=== PATIENT | male | born 1950 | race Caucasian/White ===

== ENCOUNTER 2023-01-09 11:04 | Observation (INO) | payer OTHER ==
[~2023-01-09] VITALS: Ht 182.9 cm; Wt 104.0 kg
[2023-01-09 12:24] LABS: BASO # 0.1 K/mm3 (0.0-0.2); BASO % 0.7 % (0.0-2.0); EOS # 0.4 K/mm3 (0.0-0.7); EOS % 4.3 % (0.0-4.0); GRAN # 6.5 K/mm3 (1.4-6.5); GRAN % 65.4 % (42.2-75.2); HEMATOCRIT 39.3 % (42.0-52.0); HEMOGLOBIN 12.7 g/dl (13.5-18.0); LYMPH # 2.2 K/mm3 (1.2-3.4); LYMPH % 22.4 % (20.0-51.0); MEAN CELL VOLUME 87 fl (80.0-100.0); MEAN CORPUSCULAR HEMOGLOBIN 28 pg (27-31); MEAN CORPUSCULAR HGB CONC 32 g/dl (33.0-37.0); MEAN PLATELET VOLUME 9.8 fl (7.4-10.4); MONO # 0.6 K/mm3 (0.1-0.6); PLATELET COUNT 413 K/mm3 (130-400); REDCELL DISTRIBUTION WIDTH-CV 13.3 % (11.5-14.5)
[2023-01-09 12:34] LABS: INR 1.4 (0.8-3.0); PROTHROMBIN TIME 15.1 SECONDS (9.7-12.8)
[2023-01-09 12:36] LABS: PARTIAL THROMBOPLASTIN TIME 33.6 SECONDS (26.0-37.0)
[2023-01-09 12:41] LABS: ALBUMIN 2.8 gm/dL (3.4-4.8); BILIRUBIN,TOTAL 0.8 mg/dL (0.2-1.2); CALCIUM 8.7 mg/dL (8.4-10.2); CREATININE, serum 0.78 mg/dL (0.72-1.25); POTASSIUM 3.9 mmol/L (3.5-4.5); TOTAL PROTEIN 6.6 gm/dL (6.2-8.1)
[2023-01-09] MEDS ORDERED: COREG 6.256.25 MG/TA PO (12:51)
[2023-01-09 12:52] LABS: TROPONIN-I 0.09 ng/mL (0.00-0.033)
[2023-01-09] MEDS ORDERED: PLAVIX 75MG TAB75 MG PO (12:52)
[2023-01-09] MEDS ORDERED: ASPIRIN E.C. 8181 MG PO (12:53)
[2023-01-09] MEDS ORDERED: GLUCOPHAGE1000 MG PO (12:54)
[2023-01-09] MEDS ORDERED: COZAAR 50MG50 MG/TAB PO (12:55)
[2023-01-09] MEDS ORDERED: LASIX 40MG TABL40 MG PO (12:55)
[2023-01-09] MEDS ORDERED: ELIQUIS 5MG PO (12:56)
[2023-01-09] MEDS ORDERED: LIPITOR 80MG80 MG PO (12:57)
[2023-01-09] MEDS ORDERED: PROSCAR 5MG5 MG PO (12:57)
[2023-01-09] MEDS ORDERED: FLOMAX 0.40.4 MG/CAP PO (12:58)
[2023-01-09] MEDS ORDERED: IMODIUM 2MG CAPS2 MG PO (13:03)
[2023-01-09 15:41] VITALS: BP 135/75; PULSE 72; TEMP 98.3
[2023-01-09 19:09] VITALS: BP 120/7; PULSE 72; TEMP 99
--- NOTE | 2023-01-09 19:19 | NUR ---
Patient admitted to unit around 1530. 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 Right side has no movement from CVA as well. Edema noted bilaterally to lower extremities. Patient denies any sort of pain upon admission. 2L O2 on via nc. Sister and niece at bedside. Niece is DPOA, number listed in admission intake. Heparin currently running at 18.5ml/hr, bolus administered prior per orders. Redness noted to coccyx with a small open area that appears to be peeling. Mepilex dressing applied. Patient handoff complete to night supervisor at this time.
[2023-01-09 21:10] VITALS: BP_SYST 120
--- NOTE | 2023-01-09 21:20 | NUR ---
Patient assessed around 2109. Camed back from CT head. Denies having pain and discomfort. Heparin drip running per orders, IV site to left hand. Denies SOB and dyspnea. LS CTA. On oxygen at 2 L/min via NC. HRR. Voices no questions, needs, or concerns at this time. In bed with call light within reach. High fall risk precautions in place. Bed alarm on.
[2023-01-09 23:13] VITALS: BP 123/76; PULSE 69; TEMP 97.5
[2023-01-10] VITALS (9 sets, daily range): BP systolic 107–131; BP diastolic 59–75; PULSE 66–77; TEMP 97.8–98.3
--- NOTE | 2023-01-10 00:16 | NUR ---
HepXa was 1.25. Put on Heparin drip on hold at 2330. This nurse reviewed chart, and HepxA was 0.5 around 1600, but Heparin drip was not started until 1700. Patient had received one dose of Eliquis. Call placed to pharmacist, and asked if we should switch to monitoring by PTT, and agreed we should. Added on PTT, with a result of 101.8, goal for Heparin drip. Restarted Heparin drip at 1850 units/hr at this time, and order placed to recheck PTT at 0615.
--- NOTE | 2023-01-10 05:44 | NUR ---
Continues on Heparin drip per orders. Has denied having pain and discomfort. Continues on oxygen at 2 L/min via NC. Denies SOB and dyspnea. Voices no questions, needs, or concerns at this time. In bed with call light within reach. High fall risk precautions in place. Bed alarm on.
[2023-01-10 06:45] LABS: HEMATOCRIT 37.4 % (42.0-52.0); HEMOGLOBIN 12.5 g/dl (13.5-18.0); MEAN CELL VOLUME 86 fl (80.0-100.0); MEAN CORPUSCULAR HEMOGLOBIN 29 pg (27-31); MEAN CORPUSCULAR HGB CONC 33 g/dl (33.0-37.0); MEAN PLATELET VOLUME 9.6 fl (7.4-10.4); PLATELET COUNT 422 K/mm3 (130-400); RED BLOOD COUNT 4.37 M/mm3 (4.20-5.60); REDCELL DISTRIBUTION WIDTH-CV 13.2 % (11.5-14.5)
[2023-01-10 07:01] LABS: ALBUMIN 2.8 gm/dL (3.4-4.8); CALCIUM 8.8 mg/dL (8.4-10.2); CREATININE, serum 0.74 mg/dL (0.72-1.25); MAGNESIUM 1.8 mg/dL (1.6-2.6); PHOSPHOROUS 3.8 mg/dL (2.3-4.7); POTASSIUM 3.5 mmol/L (3.5-4.5)
--- NOTE | 2023-01-10 10:07 | NUR ---
Initial visit; Patient thanked Mat Tester for offering prayer and God's blessings for healing.
--- NOTE | 2023-01-10 10:29 | NUR ---
Patient alert and oriented x4 this morning. Shift assessment complete, no new variances noted. Baseline right sided paralysis. Patient tolerating cares well, rolls well without help onto his right side. Denies any generalized or localized pain to areas such as calves or chest. Tolerating soft/bite sized diet and thickened liquids well. Patient had bowel movement, staff assisted in chetan care. New mepilex dressing placed over reddenned coccyx. Medication crushed and administered in pudding. Heparin infusing per orders. Patient currently in bed with call light in reach, all needs met at this time.
[2023-01-10 11:18] LABS: INR 1.4 (0.8-3.0); PROTHROMBIN TIME 14.8 SECONDS (9.7-12.8)
--- NOTE | 2023-01-10 12:41 | NUR ---
Patient remains stable. Niece at bedside. Attempted to start a second IV site to run 1/2 NS separate, unsuccessful attempt x2. 1/2 NS running through Y-site of Heparin per orders. Consent obtained for EDITH tomorrow morning. Patient currently in bed with call light in reach, all needs met at this time.
--- NOTE | 2023-01-10 12:45 | NUR ---
Director Of Religious Activities met with Patient and ras/DAYO Marley at bedside to conduct Care Managment Assessment and discuss discharge planning. Patient admitted from [facility] and intends to discharge to [facility]. Ayaka reports that coordination with [facility] was intitiated for an admit date of today. Patient is established with PCP Dr. Bryant and is covered by [facility] at this time with a [facility] application having been submitted by family prior to admission. Patient is reported to have been on 2L O2 at [facility]. Family's plan is to send Patient for Rehab with an evaluation of PAtient's independency in rehab to discharge home or transition to LTC with the preference of discharging home after rehab. Family requests Speech be consulted during admission. SW requested physician consult speech. Discharge Plan: [facility]
--- NOTE | 2023-01-10 13:30 | NUR ---
rn cardiovascular icu submitted a jail authorization request to [facility] for Patient. Ref # [id number].
--- NOTE | 2023-01-10 15:54 | NUR ---
Dispatcher Radio contated [facility] to follow-up on Patient's referral. Lumber Puller, Allie P:[phone] states that Dennis's Family has changed Patient MCR from C to a standard AB plan and it may impact Patient's acceptence. NATHALIA attempted to contact Patient's DPOAHC Ayaka to inquire about the change in MCR and left voicemail requesting callback. NATHALIA contacted Donald with [facility] to request information if Patient intends to return to [facility] for SNF. Donald reports that they can review clinicals and states that Patient will need to pay the fees from his last stay estimating $1200. NATHALIA contacted [facility] to follow-up on Patient's SNF authorization request. Rep states that it is awaiting decision. NATHALIA inquired about changing the facility in the current request if [facility] is denied authorization. Rep recommends waiting until this authorization is approved/denied before submitting another authorization as it will be needed for another facility.
--- NOTE | 2023-01-10 19:23 | NUR ---
Patient remains stable. Cheeks noted to be flushed earlier, but patient was having bowel movement. Patient reports low appetite, encouraged to eat and drink ensure supplement with thickener if not hungry. Denies pain or discomfort. Patient handoff report complete at this time to hot mill operator.
--- NOTE | 2023-01-10 21:17 | NUR ---
Patient assessed around 1999. Incontinent of stool at that time. Cleaned and repositioned in bed. Has Mepilex to bottom in place. Peripheral INT to left hand, with Heparin drip running per orders. PTT to be rechecked in the morning. Plannig for EDITH tomorrow, and will be NPO after midnight. Patient is aware. In bed with call light within reach. High fall risk precautions in place. Bed alarm on.
--- NOTE | 2023-01-10 22:11 | NUR ---
Patient had 6 beat run Vtach on telemetry. Asymptomatic, VSS. Reviewed labs from this morning, potassium 3.5, mag 1.8, not replaced as not on protocol. Called DERRICK Lee. New order to recheck labs. Order placed and lab called. Lab in room at this time.
[2023-01-10 23:25] LABS: CALCIUM 8.4 mg/dL (8.4-10.2); CREATININE, serum 0.59 mg/dL (0.72-1.25); POTASSIUM 3.6 mmol/L (3.5-4.5)
[2023-01-11] VITALS (17 sets, daily range): BP systolic 105–130; BP diastolic 58–71; PULSE 65–90; TEMP 95.8–98
--- NOTE | 2023-01-11 05:36 | NUR ---
Patient has denied having pain and discomfort this shift. Has been NPO since midnight for EDITH today. Continues on Heparin drip per orders, awaiting morning PTT results at this time. Patient has preop IV fluid ordered, in room, but not running at this time due to low EF. Did have IV fluids running when this nurse came onto shift at 1845, but they were stopped due to this at that time. Patient in bed with call light within reach. High fall risk precautions in place. Bed alarm on.
--- NOTE | 2023-01-11 05:39 | NUR ---
Patient's magnesium and potassium were replaced per orders this shift.
[2023-01-11 06:00] LABS: HEMATOCRIT 37.2 % (42.0-52.0); HEMOGLOBIN 12.5 g/dl (13.5-18.0); MEAN CELL VOLUME 85 fl (80.0-100.0); MEAN CORPUSCULAR HEMOGLOBIN 29 pg (27-31); MEAN CORPUSCULAR HGB CONC 34 g/dl (33.0-37.0); MEAN PLATELET VOLUME 9.6 fl (7.4-10.4); PLATELET COUNT 436 K/mm3 (130-400); RED BLOOD COUNT 4.39 M/mm3 (4.20-5.60)
[2023-01-11 06:33] LABS: ALBUMIN 2.8 gm/dL (3.4-4.8); CALCIUM 8.5 mg/dL (8.4-10.2); CREATININE, serum 0.63 mg/dL (0.72-1.25); PHOSPHOROUS 2.9 mg/dL (2.3-4.7); POTASSIUM 4.1 mmol/L (3.5-4.5)
--- NOTE | 2023-01-11 08:25 | NUR ---
PATIENT RESTING IN BED UPON ENTERING ROOM. ORAL MORNING MEDICATIONS HELD DUE TO NPO STATUS FOR PROCEDURE. SHIFT ASSESSMENT COMPLETED. PATIENT DENIES ANY PAIN OR NEEDS, R SIDE FLACCID, PATIENT ABLE TO ROLL SIDE TO SIDE IN BED WITH ASSISTANCE. BED BATH PROVIDED BY STUDENT RNs. UPDATED PATIENT ON PLAN OF CARE. CALL LIGHT WITHIN REACH, BED ALARMS IN PLACE. HEPARIN GTT INFUSING PER eMAR. WILL CONTINUE TO MONITOR.
--- NOTE | 2023-01-11 09:15 | NUR ---
Patient alert and oriented upon morning assessment. Patient denies any pain or discomfort. Slurred speech and right sided paralysis noted. Dyspnea with speech. Incontinent of urine upon morning assessment, linens changed and bed bath provided. Patient monitored on telemetry. Family at bedside.
--- NOTE | 2023-01-11 11:24 | NUR ---
Vc++ Developer contacted PARUL Araiza with [facility] to discuss Patient's referral. Teodora states that any change in insurance while admitted for SNF will impact the patment process from insruance and [facility] would decline if changes are made through Patient's expected course of treatment. NATHALIA discussed [facility] with Teodora briefing that per [facility], [facility] is contracted with [facility] for SNF services. Teodora states that they will accept if preauthorization is granted from [facility] through [facility]. SW contacted Patient's MONSERRAT Marley to discuss discharge planning. NATHALIA briefed the concern for changes in insurance from [employer] and briefed that [facility] is reported to be contracted with [facility]. Ayaka states that she will make no changes to Patient's insurance. NATHALIA contacted Allie with [facility] to report Ayaka's intent to maintain current insurance. NATHALIA discussed asecondary option of discharging to LTC if SNF is denied by insurance. Allie agrees to speak with her DON to see if this is a seondary option to SNF. NATHALIA contacted Donald with [facility] to inquire about the possibility for Patient's return as a discharge option. Donald states that if family pays the $1200 and authorization is granted by [facility], it is likely that they can accept. Per DAYO Marley, Patient is established with [facility] and [facility] has agreed to pay the remaining balance to AV. MONSERRAT Marley is agreeable to discharging Patient to [facility] if SNF is denied.
--- NOTE | 2023-01-11 14:54 | NUR ---
Geospatial Technician resent Pt notes to [facility] per their request. NATHALIA contacted Ciera with [facility] to follow-up on discharge planning. ciera reports that she has contacted [facility] reviewer who is still pending decision. Geospatial Technician discussed facility acceptencee for SNF and LTC with rehab benefit and inquired if [facility] could admit LTC with Rehab today or over the weekend as they have agreed to accept for both SNF (pending auth) and LTC with rehab. Ciera states that at this time the soonest they can admit Patient is Saturday, - with SNF or LTC with Rehab and will coordinate for transport Saturday AM. NATHALIA informed MONSERRAT Marley.
--- NOTE | 2023-01-11 15:25 | NUR ---
HEPARIN GTT AND IVF DISCONTINUED AT THIS TIME PER ORDERS. PATIENT POST OP VSS.
[2023-01-12] VITALS (11 sets, daily range): BP systolic 100–131; BP diastolic 53–69; PULSE 63–73; TEMP 97.2–98.2
--- NOTE | 2023-01-12 02:04 | NUR ---
Shift assessment completed. Pt is alert and oriented. He is post CVA earlier this month with a flaccid right side and moderate expressive aphasia. He denies pain or discomfort at this time. PM meds were administered with honey-thickened water.He was repositioned until comfortable and is being turned q2h. He denies other needs at this time. Fall precautions in place and call light within reach.
[2023-01-12 06:38] LABS: HEMOGLOBIN 12.3 g/dl (13.5-18.0); MEAN CELL VOLUME 85 fl (80.0-100.0); MEAN CORPUSCULAR HEMOGLOBIN 29 pg (27-31); MEAN CORPUSCULAR HGB CONC 34 g/dl (33.0-37.0); MEAN PLATELET VOLUME 9.5 fl (7.4-10.4); PLATELET COUNT 389 K/mm3 (130-400); RED BLOOD COUNT 4.32 M/mm3 (4.20-5.60); REDCELL DISTRIBUTION WIDTH-CV 13.1 % (11.5-14.5)
[2023-01-12 06:41] LABS: HEMATOCRIT 36.5 % (42.0-52.0)
[2023-01-12 07:39] LABS: ALBUMIN 2.8 gm/dL (3.4-4.8); CALCIUM 8.3 mg/dL (8.4-10.2); CREATININE, serum 0.65 mg/dL (0.72-1.25); PHOSPHOROUS 3.4 mg/dL (2.3-4.7)
--- NOTE | 2023-01-12 08:35 | NUR ---
Patient is awake in bed, oriented x 4, VSS. Denies any pain or disco mfort. Getting 3L O2 NC. Tele in place, NSR. Assessment completed, meds provided. No further needs at this time. Call light within reach.
--- NOTE | 2023-01-12 18:11 | NUR ---
Patient has been resting in bed and watching TV. He had 2 soft BM, hygiene provided. No need for insulin, he has been 100-120 blood glucose. Telemetry NSR. Continues with 2-3L O2. Report will be given to night RN.
--- NOTE | 2023-01-12 23:47 | NUR ---
Shift assessment performed. Pt is alert and oriented in bed. VS wnl. He continues on 3 L O2 via NC. He was cleaned up in the bed with the bathing wipes and repositioned until comfortable. He denies pain or discomfort at this time. No other needs verbalized. Fall precautions in place and call light within reach.
[2023-01-13] VITALS (12 sets, daily range): BP systolic 91–124; BP diastolic 56–71; PULSE 58–71; TEMP 97.2–98.6
[2023-01-13 06:44] LABS: BASO # 0.1 K/mm3 (0.0-0.2); BASO % 0.8 % (0.0-2.0); EOS # 0.3 K/mm3 (0.0-0.7); EOS % 3.5 % (0.0-4.0); GRAN # 4.9 K/mm3 (1.4-6.5); GRAN % 53.7 % (42.2-75.2); HEMATOCRIT 35.9 % (42.0-52.0); HEMOGLOBIN 12.1 g/dl (13.5-18.0); LYMPH # 3.1 K/mm3 (1.2-3.4); LYMPH % 34.2 % (20.0-51.0); MEAN CELL VOLUME 85 fl (80.0-100.0); MEAN CORPUSCULAR HEMOGLOBIN 29 pg (27-31); MEAN CORPUSCULAR HGB CONC 34 g/dl (33.0-37.0); MEAN PLATELET VOLUME 9.6 fl (7.4-10.4); MONO # 0.6 K/mm3 (0.1-0.6); MONO % 6.7 % (1.7-9.3); PLATELET COUNT 389 K/mm3 (130-400); RED BLOOD COUNT 4.23 M/mm3 (4.20-5.60); REDCELL DISTRIBUTION WIDTH-CV 13.2 % (11.5-14.5)
[2023-01-13 06:46] LABS: CALCIUM 8.6 mg/dL (8.4-10.2); CREATININE, serum 0.64 mg/dL (0.72-1.25); POTASSIUM 3.7 mmol/L (3.5-4.5)
--- NOTE | 2023-01-13 08:00 | NUR ---
Patient is resting in bed, breakfast at the bedside, alert and oriented, took his morning meds, assisted with his table to eat. Assessment completed, no further needs at this time. Call light within reach.
--- NOTE | 2023-01-13 21:12 | NUR ---
Patient assessed around 1929. Denies having pain and discomfort. Peripheral INT to left hand. Denies SOB and dyspnea. On oxygen at 2 L/min via NC. Continues on Eliquis per orders. Aware of plan to discharge to nursing facility tomorrow. Voices no questions, needs, or concerns at this time. In bed with call light within reach. High fall risk precautions in place. Bed alarm on.
[2023-01-14 02:59] VITALS: BP 132/68; PULSE 74; TEMP 98
[2023-01-14 03:57] VITALS: BP_SYST 132
--- NOTE | 2023-01-14 06:04 | NUR ---
Patient has denied having pain and discomfort this shift. Voices no questions, needs, or concerns at this time. In bed with call light within reach. High fall risk precautions in place. Bed alarm on.
[2023-01-14 07:22] LABS: BASO # 0.1 K/mm3 (0.0-0.2); CALCIUM 8.6 mg/dL (8.4-10.2); CREATININE, serum 0.66 mg/dL (0.72-1.25); EOS # 0.3 K/mm3 (0.0-0.7); EOS % 3.1 % (0.0-4.0); GRAN % 54.5 % (42.2-75.2); HEMOGLOBIN 12.1 g/dl (13.5-18.0); LYMPH % 32.7 % (20.0-51.0); MEAN CELL VOLUME 85 fl (80.0-100.0); MEAN CORPUSCULAR HEMOGLOBIN 28 pg (27-31); MEAN CORPUSCULAR HGB CONC 33 g/dl (33.0-37.0); MEAN PLATELET VOLUME 9.7 fl (7.4-10.4); MONO # 0.7 K/mm3 (0.1-0.6); MONO % 7.3 % (1.7-9.3); PLATELET COUNT 394 K/mm3 (130-400); POTASSIUM 3.8 mmol/L (3.5-4.5); RED BLOOD COUNT 4.27 M/mm3 (4.20-5.60); REDCELL DISTRIBUTION WIDTH-CV 13.2 % (11.5-14.5)
[2023-01-14 07:23] LABS: HEMATOCRIT 36.4 % (42.0-52.0)
[2023-01-14 07:32] VITALS: BP 114/70; PULSE 80; TEMP 98.2
[2023-01-14 08:30] VITALS: BP_SYST 114
[2023-01-14] MEDS ORDERED: ELIQUIS 5MG PO (08:31)
--- NOTE | 2023-01-14 08:39 | NUR ---
Financial Compliance Examiner collaborated with Treatment Team during rounding to assess Patient for discharge readiness. Physician assesses Patient to be ready for discharge. Financial Compliance Examiner contacted [facility] to follow-up on SNF authorization request. Rep states that additional information is needed to justify Patient's SNF need. SW contacted [facility] to discuss Patient's acceptence. Patient Services AssistantAllie states that they can accept Patient LTC with [facility] for rehab today and states that they will contact this SW back with transportation time. NATHALIA infomred Treatment Team and nursing staff. NATHALIA contacted PAtient's DPOAHC Ayaka to brief discharge details. Nimo acknowledges.
--- NOTE | 2023-01-14 09:00 | NUR ---
PATIENT RESTING IN BED UPON ENTERING ROOM. MORNING MEDICATIONS ADMINISTERED. SHIFT ASSESSMENT COMPLETED. PATIENT DENIES ANY PAIN OR NEEDS. CALL LIGHT WITHIN [facility], WILL CONTINUE TO MONITOR.
--- NOTE | 2023-01-14 11:28 | NUR ---
Help Desk Rep met with Patient at bedside to conduct Medicare IM Brief. Patient acknowledges brief and signs form. Original placed in chart, Patient declined copy. [facility] contacted NATHALIA to inform that Transportation is scheduled at 1300 today. SW informed nursing staff.
[2023-01-14 11:42] VITALS: BP 124/68; PULSE 71; TEMP 98
[2023-01-14 12:30] VITALS: BP_SYST 124
--- NOTE | 2023-01-14 13:35 | NUR ---
PATIENT DISCHARGED FROM MEDICAL UNIT AT THIS TIME. DISCHARGE PACKET SENT WITH CARDING DOUBLER. REPORT CALLED TO KASH WHIPPLE AT [facility], ALL QUESTIONS ANSWERED. TELEMETRY DISCONTINUED. IV DISCONTINUED. PATIENT ESCORTED OFF OF UNIT BY CARDING DOUBLER.
== END 2023-01-14 13:43 ==
LOC: COL.ER 11:04 → MEDICAL 12:39
PROVIDERS: Emergency Medicine; Internal Medicine; ADMIT Hospitalist
DX: I26.99 Other pulmonary embolism without acute cor pulmonale (principal); I82.403 Acute embolism and thrombosis of unspecified deep veins of lower extremity, bilateral; J96.01 Acute respiratory failure with hypoxia; I50.22 Chronic systolic (congestive) heart failure; I47.20 Ventricular tachycardia, unspecified; I63.9 Cerebral infarction, unspecified; R63.4 Abnormal weight loss; I11.0 Hypertensive heart disease with heart failure; N40.0 Benign prostatic hyperplasia without lower urinary tract symptoms; Z79.82 Long term (current) use of aspirin; Z79.01 Long term (current) use of anticoagulants; Z79.899 Other long term (current) drug therapy; Z79.84 Long term (current) use of oral hypoglycemic drugs
CPT/HCPCS: G0378; J1644; J2704; J3475; J3480

== ENCOUNTER → 2023-01-09 | Outpatient (CLI) | payer OTHER ==
[~2023-01-09] MED LIST: ASPIRIN E.C. 8181 MG PO; COREG 6.256.25 MG/TA PO; COZAAR 50MG50 MG/TAB PO; ELIQUIS 5MG PO; FLOMAX 0.40.4 MG/CAP PO; GLUCOPHAGE1000 MG PO; IMODIUM 2MG CAPS2 MG PO; LASIX 40MG TABL40 MG PO; LIPITOR 80MG80 MG PO; PLAVIX 75MG TAB75 MG PO; PROSCAR 5MG5 MG PO
== END ==
LOC: COL.RAD 10:08
DX: I26.99 Other pulmonary embolism without acute cor pulmonale (principal)
CPT/HCPCS: Q9967